=== PATIENT | male | born 1950 | race Caucasian/White ===

== ENCOUNTER → 2017-03-05 | Day surgery (SDC) | payer BC, MEDICARE ==
[~2017-03-05] MED LIST: CATAPRES 0.1MG0.1 MG PO; COREG 3.125M3.125 MG PO; FARXIGA10 MG PO; GLYBURIDE-METF1 EAC1 PO; LIPITOR TAB 2020 MG PO; LORTAB 7.5-3251 EACH PO; LOW DOSE ASPIRI81 MG PO; NORVASC 5 MG TAB5 MG PO; PLAVIX75 MG PO; SYNTHROID25 MCG PO; VALSARTAN160 MG PO; VITAMIN D5000 UNIT PO
== END | disposition home or self-care (01) ==
LOC: OR 07:23
PROVIDERS: Surgery
PROC: 0DJD8ZZ Inspection of Lower Intestinal Tract, Via Natural or Artificial Opening Endoscopic (ICD-10-PCS; principal; 2017-03-05 09:40)
DX: Z12.11 Encounter for screening for malignant neoplasm of colon (principal); J44.9 Chronic obstructive pulmonary disease, unspecified; I10 Essential (primary) hypertension; E11.9 Type 2 diabetes mellitus without complications; I25.10 Atherosclerotic heart disease of native coronary artery without angina pectoris; K21.9 Gastro-esophageal reflux disease without esophagitis; M19.90 Unspecified osteoarthritis, unspecified site; M54.9 Dorsalgia, unspecified; Z86.010 Personal history of colon polyps; Z86.73 Personal history of transient ischemic attack (TIA), and cerebral infarction without residual deficits; Z87.891 Personal history of nicotine dependence; Z79.02 Long term (current) use of antithrombotics/antiplatelets; Z79.82 Long term (current) use of aspirin; Z79.899 Other long term (current) drug therapy
CPT/HCPCS: 82962; J7120

== ENCOUNTER 2021-01-01 14:11 | Emergency (ER) | payer OTHER ==
[2021-01-01] MEDS ORDERED: MEDROL DOSEPAK 24 MG PO (17:25)
[2021-01-01] MEDS ORDERED: CYCLOBENZAPRINE10 MG PO (17:25)
== END 2021-01-01 18:10 | disposition home or self-care (01) ==
LOC: ER1 14:11
DX: M54.42 Lumbago with sciatica, left side (principal); Z86.73 Personal history of transient ischemic attack (TIA), and cerebral infarction without residual deficits
CPT/HCPCS: 96372; 99283; J1885

== ENCOUNTER → 2021-01-07 | Outpatient (CLI) | payer OTHER ==
[~2021-01-07] MED LIST changes: +CYCLOBENZAPRINE10 MG PO; +MEDROL DOSEPAK 24 MG PO
== END ==
LOC: KOH-I 12:01
DX: M54.30 Sciatica, unspecified side (principal); M54.9 Dorsalgia, unspecified; M47.816 Spondylosis without myelopathy or radiculopathy, lumbar region
CPT/HCPCS: 72100

== ENCOUNTER → 2021-10-20 | Outpatient (CLI) | payer OTHER | LOC: EXRD 13:14 | DX: I65.23 Occlusion and stenosis of bilateral carotid arteries (principal); G45.9 Transient cerebral ischemic attack, unspecified | CPT/HCPCS: 93880 ==

== ENCOUNTER → 2022-02-09 | Outpatient (CLI) | payer OTHER | LOC: KOH-I 09:48 → CT 10:00 | DX: Z87.891 Personal history of nicotine dependence (principal); R91.8 Other nonspecific abnormal finding of lung field | CPT/HCPCS: 71271 ==